=== PATIENT | male | born 1950 | race Caucasian/White ===

== ENCOUNTER 2019-10-28 14:07 | Emergency (ER) | payer MEDICARE, OTHER ==
[~2019-10-28] VITALS: Ht 185.4 cm; Wt 113.4 kg
--- OUTSIDE RECORDS SUMMARY | 2019-10-28 14:10 | XMS REPORT ---
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 Allergies, Adverse Reactions, Alerts Allergy Name Allergy Type Status Severity Reaction(s) Onset Date Inactive Date Treating Clinician Comments No Known Contrast Allergies DA Active U 2002-03-08 00:00:00 No Known Drug Allergies DA Active U 2002-03-08 00:00:00 No Known Food Allergies DA Active U 2002-03-08 00:00:00 No Known Other Allergies DA Active U 2002-03-08 00:00:00 No Known Drug Intolerances DA Active U 2002-03-04 00:00:00 Medications This patient has no known medications. Encounters Start Date/Time End Date/Time Encounter Type Admission Type Attending Clinicians Care Facility Care Department Encounter ID 2019-01-06 15:15:31 Outpatient [id number] 2017-11-29 00:00:00 2017-11-30 00:00:00 [facility] [id number] Results Test Description Test Time Test Comments Text Results Atomic Results Result Comments - XR PELVIS 3 + V 2019-05-18 11:54:00 FAX: Arash Zimmer MD [phone] [place]: [address]: [facility] FAX: Charlie Parsons III [phone] Name: RAY IZAGUIRRE [facility] : 1950 Age/S: 68/M Linda Fontenot Unit #: [id number] [place] [facility] [place] [address] Phys: Arash Ibrahim MD Acct: [id number] Dis Date: Status: REG RCR PHONE #: [phone] Exam Date: 05/18/2019 1150 FAX #: [phone] Reason: PAIN EXAMS: CPT CODE: [id number] XR PELVIS 3 + V 06330 HISTORY: Left hip pain. COMPARISON: None available. 3 views of the left hip and 3 views of the pelvis: No acute fracture or dislocation. Hip joint is mildly narrowed. No AVN. Bony trabecular pattern and mineralization are normal. Acetabulum is unremarkable. Small lateral marginal osteophytes from the inferior iliac bone. Symphysis is well opposed. SI joints are preserved. Right hip is unremarkable without fracture with mild narrowing. No AVN of either hip is noted. Sacrum and iliac wings appear within normal limits. IMPRESSION: No acute fracture or dislocation of either hip mild narrowing of both hip joint especially on the left side. No AVN. Pelvic ring is intact. SI joints are unremarkable. at 1154 Reported and signed by: Juan Carlos Gallardo M.D. CC: Arash Ibrahim MD; Charlie Perera III, MD Technologist: RT Israel(Isamar) Trnscrd Date/Time/By: 05/18/2019 (4331) : By: [email or web address] Orig Print D/T: S: 05/18/2019 (4393) PAGE 1 Signed Report - XR HIP W/PEL UNI 2+V LT 2019-05-18 11:54:00 FAX: Arash Zimmer MD [phone] [place]: O St: REG FAX: Charlie Parsons III [phone] Name: RAY IZAGUIRRE [facility] : 1950 Age/S: 68/M Linda Fraga [facility] Unit #: [id number] Loc: [place] [address] Phys: Arash Ibrahim MD Acct: [id number] Dis Date: Status: REG RCR PHONE #: [phone] Exam Date: 05/18/2019 115 FAX #: [phone] Reason: PAIN EXAMS: CPT CODE: [id number] XR HIP W/PEL UNI 2+[place] [address] HISTORY: Left hip pain. COMPARISON: None available. 3 views of the left hip and 3 views of the pelvis: No acute fracture or dislocation. Hip joint is mildly narrowed. No AVN. Bony trabecular pattern and mineralization are normal. Acetabulum is unremarkable. Small lateral marginal osteophytes from the inferior iliac bone. Symphysis is well opposed. SI joints are preserved. Right hip is unremarkable without fracture with mild narrowing. No AVN of either hip is noted. Sacrum and iliac wings appear within normal limits. IMPRESSION: No acute fracture or dislocation of either hip mild narrowing of both hip joint especially on the left side. No AVN. Pelvic ring is intact. SI joints are unremarkable. at 1154 Reported and signed by: Juan Carlos Gallardo M.D. CC: Arash Ibrahim MD; Charlie Perera III, MD Technologist: Juju Segovia RT(R) Trnscrd Date/Time/By: 05/18/2019 (4765) : By: [email or web address] Orig Print D/T: S: 05/18/2019 (3764) PAGE 1 Signed Report - XR L-SPINE 2/3 VIEWS 2019-04-27 15:11:00 Name: RAY IZAGUIRRE [facility] : 1950 Age/S:68 /M [address] [facility] Unit#:[id number] Loc: [place] [address] Phys: Charlie Perera III, MD Dis Date: PHONE #: [phone] Status: REG CLI FAX #: [phone] Exam Date: 04/27/2019 Reason: RADICULAR LEG PAIN EXAMS: CPT CODE: [id number] XR L-SPINE 2/3 VIEWS 89320 REASON FOR EXAM: RADICULAR LEG PAIN EXAM ORDER DATE: 04/27/2019 2:41 PM Ordering MMando: Charlie Perera III, MD PROCEDURE: - XR L-SPINE 2/3 VIEWS FINDINGS: 3 views of the lumbar spine were obtained. There is normal alignment of the lumbar spine. The vertebral bodies are unremarkable in size and shape with large anterior osteophytes at L1, L3, and L4. Severe narrowing of L2-3 and L3-4 disc spaces No evidence of fracture. IMPRESSION: Moderate to severe degenerative changes and disc disease most pronounced at L2-4. at 1511 Reported and signed by: Ángel Valenzuela M.D. CC: Charlie Perera III, MD Technologist: Maine Grigsby RDMS Trnscrpt Data: 04/27/2019 (151) Lisseth Orig Print D/T: S: 04/27/2019 (4291) PAGE 1 Signed Report
[2019-10-28] MEDS ORDERED: DEXAMETHASONE SOD PHOS 10 MG/1 ML VIAL IM ONE (15:00)
[2019-10-28] MEDS ORDERED: HYDROCODONE/APAP 7.5MG-325MG 1 EA TAB PO PRN (15:00)
[2019-10-28] MEDS ORDERED: KETOROLAC TROMETHAMINE 60 MG/2 ML VIAL IM ONE (15:00)
[2019-10-28] MEDS ORDERED: CYCLOBENZAPRINE HCL 10 MG TAB PO ONE (15:00)
== END 2019-10-28 15:57 | disposition home or self-care (01) ==
LOC: ER 14:07
DX: M54.42 Lumbago with sciatica, left side (principal); I10 Essential (primary) hypertension; E78.5 Hyperlipidemia, unspecified; I25.2 Old myocardial infarction; Z95.5 Presence of coronary angioplasty implant and graft
CPT/HCPCS: 99283; J1100; J1885